=== PATIENT | female | born 1950 | race Caucasian/White ===

== ENCOUNTER 2016-10-15 18:45 | Observation (INO) ==
[2016-10-15] MEDS ORDERED: Ondansetron 4 MG/2 ML VIAL IVP PRN (21:27)
--- NOTE | 2016-10-15 21:58 | Internal Med History&Physical ---
<Patti Agarwal Erendira - Last Filed: 10/15/16 23:05> Date of Encounter: 10/15/16 Time of Encounter: 21:46 Assessment and Plan (1) Atypical chest pain Current visit: Yes Status: Acute cardiac versus GI vs infectious etiology EKG with nonspecific ST change trend troponins repeat EKG in morning ECHO consider stress test versus catherterization dependant on current clinical course consider consult to cardiology dependant on clinical course start clopidogrel (asprin allergy) start carafate, PPI trend LFTs, amylase hold pravastatin due to elevated LFTs consider GI consult dependant on repeat labs and clinical course (2) Acute electrocardiogram changes Current visit: Yes Status: Acute EKG changes from 08/19 repeat EKG 10/16 troponin .01 trend troponins (3) Elevated liver function tests Current visit: Yes Status: Acute trend LFTs and amylase consider GI consult (4) Diabetes mellitus Current visit: Yes Status: Acute hold metformin low dose SS protocol diabetic diet Qualifiers: Diabetes mellitus type: type 2 Diabetes mellitus complication status: with unspecified complications (5) Influenza A Current visit: No Status: Acute symptomatic <48h +nasal swab start tamiflu supportive care Internal Medicine - H&P: HPI Chief complaint: chest pain Admitted From: Hospital to Hospital Transfer (from [place]) Plans for Post Hospital Care: Home History of present illness: Ms. Torres is a 66 year old female presents c/o chest pain. PMHx CAD,CHF, HTN, COPD,DM, HLD,Pt states that pain started today around 2 pm while she was at home doing dishes. Pt states at that time pain was a constant 10/10 aching deep pressure located midsternal radiating to the epigastric area. Pt states pain as constant that worsend with laying flat,improved with sitting upright but did not improve with rest. Pt states at this time she also had increased fatigue, weakness, chills and nausea. Pt also c/o dry cough and increased belching which started about the same time. Pt went to [place] ER was given malox GI cocktail and 3 doses of nitroglycerin. States Nitroglycerin relieved her CP and GI cocktail relieved her nausea, and belching. Pt states she is no longer experiencing any of these symptoms besides dry cough currently. Pt also mentions burning with urination x7 days with increased frequency. She also denies headache, lightheadedness, change in vision, diaphoresis, palpitation, SOB, wheezing, numbness/tingling Past Med Surg Social Fam HX - Past Medical History Medical history: CHF, COPD, coronary artery disease, diabetes, GERD, glaucoma, hyperlipidemia, hypertension, migraine, other (hiatal hernia) Psychiatric history: depression - Past Surgical History Surgical History: cholecystectomy, hysterectomy - Social History Smoking Status: Former smoker Packs per day: 1+ppd x40+yrs Smokeless Tobacco Status: No Alcohol use: none Drug use: none Current living situation: Home - Independent Activity Level: Independent ambulation Internal Medicine - H&P: Meds Amlodipine [Amlodipine Besylate] 10 mg PO DAILY 07/31/15 [History] Loratadine [Claritin] 10 mg PO DAILY 07/31/15 [History] Omeprazole [PriLOSEC] 20 mg PO BID 07/31/15 [History] Topiramate [Topamax] 100 mg PO BID 07/31/15 [History] Albuterol Sulfate [Ventolin Hfa] 2 puff IH Q4H PRN 03/15/16 [History] Ergocalciferol (VITAMIN D2) [Vitamin D2 (50,000 UNIT)] 50,000 unit PO WE [History] Latanoprost [Xalatan] 1 drop BOTH EYES HS 03/15/16 [History] Metformin HCl [Metformin HCl ER] 500 mg PO DAILY 03/15/16 [History] Pravastatin Sodium [Pravachol] 40 mg PO HS 03/15/16 [History] Trazodone HCl 50 mg PO HS 03/15/16 [History] Losartan Potassium [Cozaar] 25 mg PO DAILY 10/15/16 [History] Olopatadine HCl [Pataday] 1 drop BOTH EYES DAILY 10/15/16 [History] Allergies levofloxacin [From Levaquin] Allergy (Verified 07/23/16 23:05) SWELLING IV SITE, ITCHING aspirin Adverse Reaction (Verified 07/23/16 23:05) Nausea All Systems PM: A 10-system review of systems was performed and is negative for pertinent findings except as documented above in the HPI. - Constitutional Constitutional: chills, fatigue, fever(s) (subjective at home), malaise, weakness, no excessive sweating - EENT Eyes: no change in vision Ears: no tinnitus Nose, mouth and throat: dry mouth, nasal congestion - Cardiovascular Cardiovascular ROS IM: chest pain, diaphoresis, no dyspnea, no dyspnea on exertion, no edema, no irregular heart rhythm, no lightheadedness, no palpitations - Respiratory Respiratory: cough, no dyspnea, no hemoptysis, no wheezing - Gastrointestinal Gastrointestinal: abdominal pain (epigastric), belching, dyspepsia, heartburn, nausea, no change in bowel habits, no vomiting - Genitourinary Genitourinary: dysuria, urinary frequency - Musculoskeletal Musculoskeletal ROS IM: limited range of motion (R shoulder) - Neurological Neurological ROS: no focal weakness, no headache(s), no numbness, no tingling - Constitutional Vitals: Temp Pulse Resp BP Pulse Ox 98.8 F 80 16 126/78 95 10/15/16 21:34 10/15/16 21:34 10/15/16 21:34 10/15/16 21:34 10/15/16 21:34 General appearance: Present: A&O X 3, no acute distress, answers questions appropriately - Head Head exam: Present: atraumatic, normocephalic - Eye Eye exam: Present: EOMI, conjuntiva pink, sclera anicteric - ENT ENT exam: Present: mucous membranes moist (edentulous) - Neck Neck exam general surgery: Present: full ROM, supple. Absent: lymphadenopathy - Respiratory Respiratory exam: Present: CTAB. Absent: rales, rhonchi, wheezes - Cardiovascular Cardiovascular exam: Present: RRR, +S1, +S2 - GI/Abdominal GI/Abdominal exam: Present: normal bowel sounds, soft, tenderness (epigastric), no peritoneal signs - Extremities Exam Extremities exam: Present: warm. Absent: calf tenderness, cyanotic, pedal edema - Neurological Exam Neurological exam: Present: CN II-XII intact, oriented X3 - Psychiatric Psychiatric exam: Present: normal affect, normal mood - Skin Skin exam: Present: dry, intact, warm <Marco Villa - Last Filed: 10/16/16 00:06> Past Med Surg Social Fam HX - Family History Mother History Unknown: Yes Living Status: Hx Family Endocrine Disorder: Yes (DIABETES MELLITUS.) Father History Unknown: Yes Living Status: - Additional Family History Additional family history: + distant history of CAD - Constitutional Vitals: Temp Pulse Resp BP Pulse Ox 98.8 F 80 16 126/78 95 10/15/16 21:34 10/15/16 21:34 10/15/16 21:34 10/15/16 21:34 10/15/16 21:34 - Respiratory Respiratory exam: Present: CTAB, rhonchi. Absent: chest wall tenderness, respiratory distress Additional comments: dry cough - Cardiovascular Cardiovascular exam: Present: RRR, +S1, +S2. Absent: diastolic murmur, JVD, rubs, systolic murmur - GI/Abdominal GI/Abdominal exam: Present: soft, tenderness (mid-epigastrium). Absent: guarding, hepatomegaly, rebound, splenomegaly - Back Exam Back exam: Present: normal inspection. Absent: CVA tenderness (L), CVA tenderness (R) Internal Med - H&P Results - Labs Labs: Cardiac Enzymes 10/15/16 Range/Units 21:46 Troponin I 0.00 (0-0.03) ng/mL - EKG Data -: EKG Interpreted by Myself EKG shows normal: sinus rhythm - EKG Data Prior EKG available for review: yes When compared to previous EKG: there is no significant change EKG comments: 10/15/16 23:57 Sinus rhythm; subtle ST-T depression in V5-V6. - Diagnostic Studies Chest x-ray Status: image reviewed by me (negative in my opinion; mild vascular congestion per radiology) - Attending Attestation I discussed the patient QUILEUTE; PMH; ROS; lab data; and exam findings with Dr. Agarwal. I then saw, interviewed, and examined patient independently as well. Pt currently chest pain free. She is, however, having epigastric pain. She denies any h/o pancreatitis and/or ulcer disease. She does not drink alcohol. Given her elevated LFTs and history of excessive belching, I worry that she has a GI source of chest pain. She does have risk factors for angina and also had relief of CP with NTG. Furthermore, she has influenza presently and CP may be related to her acute viral illness. I agree with Dr. Agarwal's plan as detailed above. Given her active and symptomatic influenza, we will hold off on ordering stress test. This can be done as outpatient. If she has + troponins and/or unstable angina, we will consult cardiology at that point. Otherwise, cardiac work-up can be done as outpatient. Meanwhile, I asked Dr. Agarwal to add Carafate for concerns of GI source of chest pain. Other than my comments above and noted exam findings, I agree with Dr. Agarwal's assessment adn plan.
[2016-10-15] MEDS ORDERED: D5% in Water 1,000 ML IV PRN (23:11)
[2016-10-15] MEDS ORDERED: *HR* Dextrose 50 % in Water (Syg) 50 ML SYRINGE IVP PRN (23:11)
[2016-10-15] MEDS ORDERED: Dextrose Gel 15 GM PO PRN ×2 (23:11)
[2016-10-16] MEDS: Sucralfate 1 GM TABLET PO SCH ×5 (00:10→20:06)
[2016-10-16] MEDS: (Olopatadine Hcl [Pataday] 1 DROP) OP SCH ×2 (00:12→07:49)
[2016-10-16] MEDS: traZODone 50 MG TABLET PO SCH ×2 (00:13→20:05)
[2016-10-16] MEDS: Topiramate 100 MG TABLET PO SCH ×3 (00:13→20:05)
[2016-10-16] MEDS: Insulin LISPRO 300 UNITS/3 ML VIAL SQ SCH ×6 (00:17→20:17)
[2016-10-16] MEDS: Latanoprost 2.5 ML BOTTLE BOTH EYES SCH ×2 (00:18→20:06)
[2016-10-16] MEDS: *HR* Heparin 5,000 UNIT/ML VIAL SQ SCH ×3 (00:19→16:33)
[2016-10-16 04:11] LABS: Bilirubin,Urine Negative (Negative); Blood,Urine Small (Negative); Clarity,Urine Clear (Clear); Color,Urine Yellow (Yellow); Glucose,Urine (UA) Normal (Normal); Ketones,Urine Negative (Negative); Leukocyte Esterase,Urine Negative (Negative); Nitrite,Urine Negative (Negative); PH,Urine 6.5 pH Units (5.0-8.0); Protein,Urine Negative (Neg-Trace); Specific Gravity,Urine 1.008 (1.010-1.025); Urobilinogen,Urine Normal (Normal)
[2016-10-16 04:14] LABS: Bacteria,Urine None Seen per hpf (None-Few); Hyaline Casts,Urine None Seen per lpf (None-Few); RBC,Urine 0-3 per hpf (0-3); Squamous Epithelial Cell,Urine Moderate per lpf (None-Few); WBC,Urine 0-3 per hpf (0-3)
[2016-10-16 05:32] LABS: Albumin 3.3 g/dL (3.5-5.0); Bilirubin,Direct 0.2 mg/dL (0.0-0.5); Bilirubin,Indirect 0.3 mg/dL (0.0-1.2); Bilirubin,Total 0.5 mg/dL (0.2-1.2); Globulin 3.4 g/dL (2.4-3.5); Total Protein 6.7 g/dL (6.0-8.3)
[2016-10-16] MEDS: amLODIPine 5 MG TABLET PO SCH (07:48)
[2016-10-16] MEDS: Loratadine 10 MG TABLET PO SCH (07:49)
--- NOTE | 2016-10-16 10:07 | ECHO - Doppler Report ---
Echocardiogram Name: Joslyn Torres Date of Study: 10/16/2016 Date: 1950 Ht: 66.0 in Medical Record#: [id number] Age: 66 Wt: 170.0 lb Gender: Female BSA: 1.87 Order #: [id number] Location: [facility] Room #: [id number] Reading Physician: Paris Feliciano DO Machinist Outside: Mason Aguila RDCS Ordering Physician: Patti Agarwal DO Primary Physician: Alfredo Brooke CNP Indications: Chest pain Impressions: LVEF 60-65%. Normal left ventricular size and systolic function. Mild concentric hypertrophy of the left ventricle. There is evidence of mild diastolic dysfunction of the left ventricle. Normal right ventricular size and function. No significant valvular dysfunction. No pulmonary hypertension. Left Ventricular Wall Motion: Rest Echo Findings All wall segments showed normal motion. Findings: Study Quality * Technically adequate exam. ECG Findings * Normal sinus rhythm. Left Ventricle * LVEF 60-65%. * Mild concentric left ventricular hypertrophy. * Mild left ventricular diastolic dysfunction. Aortic Valve * No aortic regurgitation. * Aortic valve not well visualized. * No aortic stenosis. Mitral Valve * No mitral regurgitation. * No mitral stenosis. * Normal mitral valve structure. Tricuspid Valve * Tricuspid valve not well visualized. * No tricuspid regurgitation. * Estimated RA pressure is 3 mmHg. Pulmonic Valve * Pulmonic valve is not well visualized. * No pulmonic stenosis. * No pulmonic regurgitation. Pulmonary Artery * Pulmonary artery not well visualized. Right Ventricle * Normal right ventricular structure and function. Left Atrium * Normal left atrial size. Right Atrium * Normal right atrial size. Interatrial Septum * No evidence of PFO by color Doppler. IVC * Normal IVC dimensions and inspiratory collapse. Pericardium * There is no pericardial effusion present. Aorta * Normally sized aortic root. History Hypertension Diabetes Hypercholesteremia Family History of CAD Measurements: BP: 113/ 69 2D Normal Values RVIDd: 2.76 cm <2.7 cm IVSd: 1.30 cm 0.6 - 1.0 cm LVIDd: 4.31 cm 3.7 - 5.6 cm LVPWd: 1.30 cm 0.6 - 1.1 cm LVIDs: 2.21 cm 1.5 - 3.6 cm AO: 2.60 cm < 4.0 cm LA: 3.70 cm 2.0 - 4.0cm %FS: 48.70 cm >25 % LA volume: 31 Mitral Valve Peak E:.82 m/sec Peak A:1.12 m/sec E/A Ratio:0.7 Peak E' Lat Kam:9.03 cm/s Peak E' Med Kam:8.81 cm/s E/E' Lat Ratio:9.1 E/E' Med Ratio:9.3 Tricuspid Valve TV Regurg Peak Grad: 10.00mmHg TV Regurg Peak Kam: 1.56m/sec Updated by Paris Feliciano on 10/16/2016 10:01:48 AM electronically signed on 10/16/2016 10:03:44 AM with status of Final Wall Motion Rosa: 1=Normal, 2=Hypokinesis, 3=Akinesis, 4=Dyskinesis, 5=Aneurysmal, 6=Hyperkinetic, X=Not Visualized (Blank)=Missing
--- NOTE | 2016-10-16 12:01 | Event Note ---
Date of Encounter: 10/16/16 Time of Encounter: 12:00 A member of the UR committee has determined that the status is to be changed to observation using condition code 44. I am in agreement that the status is to be changed to observation.
--- NOTE | 2016-10-16 18:06 | Internal Med Progress Note ---
Date of Encounter: 10/16/16 Time of Encounter: 09:15 - Assessment and plan (1) Atypical chest pain Current Visit: Yes Status: Acute Assessment and plan: Pt reports substernal chest pain yesterday, lasting about an hour and a half, did not get better despite rest/nap. Pt describes as pressure with increased belching, constant, without radiation. She denies SOB but did report n/v and diaphoresis. Abd is tender in epigastric area. EKG with non-specific ST changes , troponins negative. Echo today revealed LVEF 60-65%, normal LV size and systolic dysfunction, mild LV hypertrophy, Mild LV diastolic dysfunction, no significant valvular dysfunction, and no pulmonary htn. Pt was pain free during exam with the exception of tenderness to epigastric area. Telemetry EKG Cardiac diet Echo done Stress in a.m Monitor labs Monitor VS (2) Acute electrocardiogram changes Current Visit: Yes Status: Acute Assessment and plan: Plan as above. Repeat EKG. (3) Chest pain Current Visit: Yes Status: Acute Assessment and plan: Plan as above. Qualifiers: Chest pain type: precordial pain Qualified Code(s): R07.2 - Precordial pain (4) Influenza A Current Visit: No Status: Acute Assessment and plan: Pt Flu A positive per swab at [place] ED. Pt is in respiratory precautions and she states that she did get her flu vaccine 2 mos ago at her PCP office. MOnitor labs and VS IVF hydration Pain and symptom control (5) Diabetes mellitus Current Visit: Yes Status: Chronic Assessment and plan: Pt A1c 6%, glucose 200. HOld po medications insulin sliding scale. accucheck 2h pp and hs Diabetic diet Qualifiers: Diabetes mellitus type: type 2 Diabetes mellitus complication status: with unspecified complications Diabetes mellitus chcf insulin use: unspecified chcf insulin use status Qualified Code(s): E11.8 - Type 2 diabetes mellitus with unspecified complications (6) Elevated liver function tests Current Visit: Yes Status: Acute Assessment and plan: ALT and AST elevated. Will recheck in a.m. - Time Spent With Patient less than 15 minutes - Subjective Interval history: Pt reports increased belching and midsternal chest pressure from throat to epigastric area since 1400 yesterday. Pt was resting, watching tv at onset of pressure. Pt states that she took a nap and pain had actually become worse after she awakened. She states that she has "really bad reflex" and that all she had eaten was a banana prior to episode. She did attempt to drink some fluid and began having nausea and vomiting. Pain did not radiate, but pt did say that she had diaphoresis for unknown reason, since it is chilly inside her house. Pt denies recent illness and was unaware that she had the flu. Pt did get a flu vaccine 2 mos ago at PCP. - Constitutional Vitals: Temp Pulse Resp BP Pulse Ox 98.6 F 83 18 120/71 97 10/16/16 15:08 10/16/16 15:08 10/16/16 15:52 10/16/16 15:08 10/16/16 15:52 General appearance: Present: cooperative, A&O X 3, pleasant, no acute distress, answers questions appropriately - Head Head exam: Present: atraumatic, normal inspection - Eye Eye exam: Present: normal appearance, conjuntiva pink. Absent: nystagmus - ENT ENT exam: Present: mucous membranes moist, normal exam, normal external ear exam , normal oropharynx - Neck Neck exam general surgery: Present: normal inspection. Absent: lymphadenopathy , tenderness - Respiratory Respiratory exam: Present: CTAB. Absent: accessory muscle use, chest wall tenderness, decreased breath sounds, rales, respiratory distress, rhonchi, stridor, wheezes, tachypnea - Cardiovascular Cardiovascular exam: Present: RRR, +S1, +S2 - GI/Abdominal GI/Abdominal exam: Present: normal bowel sounds, tenderness. Absent: guarding, hepatomegaly Additional comments: Abd tender in epigastric area. - Extremities Exam Extremities exam: Present: normal capillary refill, normal inspection, warm, radial pulses palpable and symetrical. Absent: pedal edema, tenderness - Neurological Exam Neurological exam: Present: alert, oriented X3, no focal deficits, strengths equal and symetr throughout, pronater drift. Absent: facial droop, speech deficit Internal Medicine: Result - Labs Labs: Cardiac Enzymes 10/15/16 10/16/16 10/16/16 Range/Units 21:46 04:11 10:10 Troponin I 0.00 0.01 0.00 (0-0.03) ng/mL Liver Function 10/16/16 Range/Units 04:11 Total Bilirubin 0.5 (0.2-1.2) mg/dL Direct Bilirubin 0.2 (0.0-0.5) mg/dL AST 58 H (5-34) Units/L ALT 59 H (0-55) Units/L Alkaline Phosphatase 109 (38-126) Units/L Albumin 3.3 L (3.5-5.0) g/dL Urine 10/16/16 Range/Units 02:25 Urine Color Yellow (Yellow) Urine Clarity Clear (Clear) Urine pH 6.5 (5.0-8.0) pH Units Ur Specific [place] 1.008 L (1.010-1.025) Urine Protein Negative (Neg-Trace) mg/dL Urine Glucose (UA) Normal (Normal) mg/dL Consult Discharge Plan - Plan Referrals: Alfredo Brooke CNP [Primary Care Provider] - 10/23/16 2:20 pm
[2016-10-16] MEDS ORDERED: Insulin LISPRO 300 UNITS/3 ML VIAL SQ SCH (21:00)
[2016-10-16] MEDS ORDERED: Insulin DETEMIR 100 UNIT/ML X5UNITS SQ SCH (21:00)
[2016-10-16 22:09] LABS: Hemoglobin A1C 6.1 %
[2016-10-17] MEDS: *HR* Heparin 5,000 UNIT/ML VIAL SQ SCH (05:51)
[2016-10-17 05:55] LABS: Basophils % 0.7 %; Eosinophils % 0.5 %; Hematocrit 36.1 % (35.3-44.9); Hemoglobin 11.9 g/dL (11.5-15.4); Immature Granulocytes % 0.2 % (0-4); Lymphocytes # 1.7 K/mcL (0.6-4.6); Lymphocytes % 39.6 %; Mean Corpuscular Hemoglobin 27.2 pg (28.0-33.3); Mean Corpuscular Volume 82.4 fL (83.0-100.0); Mean Platelet Volume 11.6 fL (9.4-12.4); Monocytes # 0.4 K/mcL (0.0-1.3); Monocytes % 10.3 %; Neutrophils # 2.1 K/mcL (1.6-8.9); Platelet Count 160 K/mcL (140-400); Red Blood Count 4.38 M/mcL (3.82-4.97); Red Cell Distribution Width 14.7 % (11.5-14.5); Segmented Neutrophils % 48.7 %
[2016-10-17 06:02] LABS: Amylase 47 Units/L (25-125); Lipase 37 Units/L (8-78)
[2016-10-17 06:08] LABS: Alanine Aminotransferase 39 Units/L (0-55); Albumin 3.1 g/dL (3.5-5.0); Albumin/Globulin Ratio 0.9 (1.1-2.2); Alkaline Phosphatase 95 Units/L (38-126); Aspartate Amino Transferase 30 Units/L (5-34); BUN/Creatinine Ratio 10 (6-26); Bilirubin,Direct 0.1 mg/dL (0.0-0.5); Bilirubin,Indirect 0.3 mg/dL (0.0-1.2); Bilirubin,Total 0.4 mg/dL (0.2-1.2); Blood Urea Nitrogen 10 mg/dL (7-20); Calcium 8.4 mg/dL (8.6-10.8); Carbon Dioxide 22 mEq/L (19-29); Chloride 109 mEq/L (98-109); Globulin 3.5 g/dL (2.4-3.5); Glucose 116 mg/dL (70-99); Osmolality,Calculated 290 (280-300); Potassium 3.6 mEq/L (3.5-4.5); Sodium 140 mEq/L (136-145); Total Protein 6.6 g/dL (6.0-8.3); eGFR For African Americans > 60 (> 60); eGFR For Non-African Americans 55 (> 60)
[2016-10-17] MEDS ORDERED: Regadenoson 0.4 MG/5 ML SYRINGE IVP ONE (06:29)
[2016-10-17] MEDS: amLODIPine 5 MG TABLET PO SCH (10:35)
[2016-10-17] MEDS: Topiramate 100 MG TABLET PO SCH (10:35)
[2016-10-17] MEDS: Loratadine 10 MG TABLET PO SCH (10:35)
[2016-10-17] MEDS: Sucralfate 1 GM TABLET PO SCH ×2 (10:35→10:38)
[2016-10-17] MEDS: (Olopatadine Hcl [Pataday] 1 DROP) OP SCH (10:36)
[2016-10-17] MEDS: Insulin LISPRO 300 UNITS/3 ML VIAL SQ SCH ×2 (10:36→12:07)
--- NOTE | 2016-10-17 11:43 | Nuclear Medicine Stress Report ---
Regadenoson Nuclear Stress Name: Joslyn Torres Date of Study: 10/17/2016 Date: 1950 Ht: 66.0 in Medical Record#: [id number] Age: 66 Wt: 170.0 lb Gender: Female Order #: [id number] Location: [facility] Room: [facility] Supervising Provider: Nuria Gonzales CNP Reading Physician: Paris Feliciano DO Ordering Physician: Shadia Ernst CNP Primary Care Physician: Alfredo Brooke CNP Stress Technologist: Cory Escamilla RRT, CCT Sheet Metal Worker: Russell Lopez Indications: Chest Pain Impression: Perfusion imaging was negative for ischemia or infarct. Pharmacologic ECG was negative for ischemia at the level of heart rate achieved. Gated EF = >70%. History: Hypertension Diabetes Stress Test Summary: Stress Test Type: Pharmacologic Regadenoson 0.4mg/5ml given IV Baseline Information: Initial Heart Rate: 71 Blood Pressure: 124/74 Stress Information: Stress Time: 4 min 00 sec Test Terminated Due to (primary): Completed Protocol Maximum Blood Pressure: 140/76 Maximum Heart Rate: 86 Percent Maximum Heart Rate Achieved: 55 Double Product: 12,040 METS Reached: 1 Symptoms: Shortness of breath Nuclear Summary: SPECT myocardial perfusion imaging using Tc99m Sestamibi given intravenously was performed at rest and following cardiac stress testing. The resting images were obtained following initial dose of 11.0 mCi. Following stress an additional dose of 33.0 mCi was given at peak exercise or 30 seconds post regadenoson infusion. Medication Given: Time Medication Dose Units Route Findings: Stress Note * Resting ECG demonstrated normal sinus rhythm. * Pharmacologic stress ECG is negative for ischemia at level of heart rate achieved. * No arrhythmias were noted during stress. * Patient had no chest pain during stress. Hemodynamic responses * Normal hemodynamic responses to pharmacologic stress. Study Quality * Study quality was fair. Gated EF > 70% * Gated EF > 70%. Left Ventricle * The left ventricle is not dilated. TID * No evidence of transient ischemic dilatation. Lung Uptake * There is no evidence of increase lung uptake. NORMALS * Normal wall motion. * Normal segmental perfusion in stress. * Normal Segmental Perfusion in rest. Updated by Paris Feliciano on 10/17/2016 11:38:58 AM electronically signed on 10/17/2016 11:39:13 AM with status of Final
--- NOTE | 2016-10-17 15:16 | Discharge Summary ---
Date of Encounter: 10/17/16 Time of Encounter: 15:00 - Discharge Diagnosis (1) Atypical chest pain Priority: Primary Status: Acute Comments: Serial troponins were negative. Echo negative LVEF 50%, moderate diastolic dysfunction of LV, normal RV size and function, mild-moderate mitral regurgitation, no pulmonary htn. STress test negative for ischemia or infarct. gated EF > 70%. Pt denies chest pain at this time. (2) Acute electrocardiogram changes Priority: Secondary Status: Acute Comments: Pt had EKG changes, repeat done today sinus rhythm with T wave inversion in aVR. Rate 66, FL int 150, QRS 87, QTc 397. 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 (3) Chest pain Priority: Secondary Status: Resolved Comments: Plan as above. Qualifiers: Chest pain type: precordial pain Qualified Code(s): R07.2 - Precordial pain (4) Influenza A Priority: Secondary Status: Acute Comments: Pt will continue Tamiflu at home. Pt denies cough, fatigue, myalgias, arthralgias, fever, sob, dyspnea. (5) Diabetes mellitus Priority: Secondary Status: Chronic Comments: A1c below goal, glucose has been well controlled here. Will restart home medications on discharge. Qualifiers: Diabetes mellitus type: type 2 Diabetes mellitus complication status: with unspecified complications Diabetes mellitus yarn wrapper insulin use: unspecified yarn wrapper insulin use status Qualified Code(s): E11.8 - Type 2 diabetes mellitus with unspecified complications (6) Elevated liver function tests Priority: Secondary Status: Resolved Comments: LFTs returned to baseline today. AST/ALT, amylase and lipase all WNL. Pt denies abd pain. No hepatomegaly or abd tenderness, masses. - Discharge Medications Prescriptions: Oseltamivir [Tamiflu] 75 mg PO BID #8 capsule Home Medications: Amlodipine [Amlodipine Besylate] 10 mg PO DAILY 07/31/15 [History] Loratadine [Claritin] 10 mg PO DAILY 07/31/15 [History] Omeprazole [PriLOSEC] 20 mg PO BID 07/31/15 [History] Topiramate [Topamax] 100 mg PO BID 07/31/15 [History] Albuterol Sulfate [Ventolin Hfa] 2 puff IH Q4H PRN 03/15/16 [History] Latanoprost [Xalatan] 1 drop BOTH EYES HS 03/15/16 [History] Metformin HCl [Metformin HCl ER] 500 mg PO DAILY 03/15/16 [History] Trazodone HCl 50 - 100 mg PO HS PRN 03/15/16 [History] Losartan Potassium [Cozaar] 25 mg PO DAILY 10/15/16 [History] Olopatadine HCl [Pataday] 1 drop BOTH EYES DAILY 10/15/16 [History] Atorvastatin [Lipitor] 40 mg PO DAILY 10/16/16 [History] Dexlansoprazole [Dexilant] 60 mg PO DAILY 10/16/16 [History] Clopidogrel [Plavix] 75 mg PO DAILY tablet 10/17/16 [Rx] Ergocalciferol (VITAMIN D2) [Drisdol (50,000 Unit)] 50,000 unit PO WE capsule 10/17/16 [Rx] Oseltamivir [Tamiflu] 75 mg PO BID #8 capsule 10/17/16 [Rx] Allergies/Adverse Reactions: Allergies levofloxacin [From Levaquin] Allergy (Verified 07/23/16 23:05) SWELLING IV SITE, ITCHING aspirin Adverse Reaction (Verified 07/23/16 23:05) Nausea Procedures/tests Complete & Pending: Procedures Performed prior 72 hours Category Date Time Status NM maren perf SPECT multi [NM] Routine Exams 10/16/16 05:42 Taken EKG [ECG 12 lead ECG] [ECG] Stat Y 10/16/16 18:18 Ordered EV echocardiogram Routine Y 10/16/16 23:05 Completed SP pharm nuclear stress Routine Y 10/17/16 07:00 Completed Date of admission: 10/15/16 20:33 Primary care physician: Alfredo Brooke CNP Consults: 10/16/16 20:26 Consult to Registered Radiographer [CONS] Routine Comment: Discharging clinician: Shadia Ernst Anticipated date of discharge: 10/17/16 - Patient Status Disposition: Home, Self-Care Condition: Good Functional capacity at discharge: independent ambulation Overall status at discharge: patient is progressing back to baseline - Discharge Instructions Follow Up With: Alfredo Brooke CNP [Primary Care Provider] - 10/23/16 2:20 pm Additional Instructions: Please take your Tamiflu as written and take it until it is gone. Please try to stay home as much as possible. If you absolutely need to go into public, please wear a mask. Stay home and rest and drink plenty of fluids Follow up with your primary care physician within the next week for a hospital follow up Please restart your normal home medications. Return here or to closest ER for any other problems or concerns for reevaluation. Interval History: Pt was admitted 2 days ago for atypical chest pain and incidentally Flu A. PT reports approx 2 hours of midsternal chset pressure and belching prior to arriving at ED. Pt started having N/V after attempting to drink at home. Pt did get a flu vaccine. Pt has primarily been asymptomatic during admission. She states that the carafate did seem to help her. She had echo last evening that was negative and stress today, which was also negative. Pt will go home on Tamiflu for 4 more days with instructions to stay inside and if she does have to go out, wear a mask, drink plenty of fluids and rest. Pt should follow up with PCP in a week. Hospital course: Ms. Torres is a 66 year old female - Time Spent with Patient Total time spent providing and/or coordinating discharge services: - Constitutional Vitals: Temp Pulse Resp BP Pulse Ox 98.8 F 73 16 104/62 96 10/17/16 11:12 10/17/16 11:12 10/17/16 12:02 10/17/16 11:12 10/17/16 12:02 General appearance: Present: cooperative, A&O X 3, pleasant, no acute distress, answers questions appropriately - Head Head exam: Present: normal inspection - Eye Eye exam: Present: normal appearance, conjuntiva pink - ENT ENT exam: Present: mucous membranes moist, normal exam, normal external ear exam - Neck Neck exam general surgery: Present: full ROM, normal inspection. Absent: lymphadenopathy, tenderness - Respiratory Respiratory exam: Present: decreased breath sounds, CTAB, wheezes. Absent: chest wall tenderness, rales, rhonchi, stridor Additional comments: Pt had faint exp wheezing in R base. Will give albuterol tx prior to discharge. - Cardiovascular Cardiovascular exam: Present: RRR, +S1, +S2 - GI/Abdominal GI/Abdominal exam: Present: normal bowel sounds, soft. Absent: hepatomegaly, tenderness - Extremities Exam Extremities exam: Present: full ROM, normal capillary refill, normal inspection , warm, radial pulses palpable and symetrical. Absent: pedal edema, tenderness - Neurological Exam Neurological exam: Present: alert, oriented X3, no focal deficits, strengths equal and symetr throughout. Absent: facial droop, speech deficit
[2016-10-17 15:17] VITALS: BP 118/75
[2016-10-17] MEDS ORDERED: Oseltamivir Phosphate 30 MG CAPSULE PO SCH (21:00)
--- NOTE | 2016-10-18 17:01 | Electrocardiograph Report ---
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
== END 2016-10-17 17:00 | disposition home or self-care (01) ==
LOC: 3BNU
PROVIDERS: ADMIT Internal Medicine; ATTEND Registered Nurse

== ENCOUNTER 2016-11-25 07:48 | Inpatient (IN) ==
--- NOTE | 2016-11-24 21:04 | Discharge Summary ---
<Rylee Valle - Last Filed: 12/08/16 20:53> Date of Encounter: 12/08/16 Time of Encounter: 20:53 - Discharge Diagnosis (1) Left rotator cuff tear arthropathy Priority: Primary Status: Acute (2) HTN (hypertension) Priority: Secondary Status: Chronic Qualifiers: Hypertension type: essential hypertension Qualified Code(s): I10 - Essential (primary) hypertension (3) Seizure disorder Priority: Secondary Status: Chronic (4) DMII (diabetes mellitus, type 2) Priority: Secondary Status: Chronic Qualifiers: Diabetes mellitus complication status: with unspecified complications Diabetes mellitus mcc insulin use: unspecified mcc insulin use status Qualified Code(s): E11.8 - Type 2 diabetes mellitus with unspecified complications - Discharge Medications Home Medications: Amlodipine [Amlodipine Besylate] 10 mg PO DAILY 07/31/15 [History] Loratadine [Claritin] 10 mg PO DAILY 07/31/15 [History] Topiramate [Topamax] 100 mg PO BID 07/31/15 [History] Albuterol Sulfate [Ventolin Hfa] 2 puff IH Q6H PRN 03/15/16 [History] Latanoprost [Xalatan] 1 drop BOTH EYES HS 03/15/16 [History] Metformin HCl [Metformin HCl ER] 500 mg PO DAILY 03/15/16 [History] Trazodone HCl 50 - 100 mg PO HS PRN 03/15/16 [History] Losartan Potassium [Cozaar] 25 mg PO DAILY 10/15/16 [History] Atorvastatin [Lipitor] 40 mg PO DAILY 10/16/16 [History] Dexlansoprazole [Dexilant] 60 mg PO DAILY 10/16/16 [History] Ergocalciferol (VITAMIN D2) [Drisdol (50,000 Unit)] 50,000 unit PO WE capsule 10/17/16 [Rx] OxyCODONE Immed Rel [Roxicodone 5 MG] 5 - 10 mg PO Q6HR PRN #40 tablet 11/24/16 [Rx] Allergies/Adverse Reactions: Allergies levofloxacin [From Levaquin] Allergy (Verified 11/25/16 09:05) SWELLING IV SITE, ITCHING aspirin Adverse Reaction (Verified 11/25/16 09:05) Nausea Primary care physician: Alfredo Brooke CNP - Patient Status Disposition: Home, Self-Care Condition: Good Functional capacity at discharge: uses cane/walker Overall status at discharge: patient is back to baseline - Discharge Instructions Follow Up With: Ken Mohr MD [Partnered Physician] - 12/24/16 10:40 am Rylee Valle PAC [Physician Wind Turbine Mechanical Engineer] - 12/05/16 2:00 pm Alfredo Brooke CNP [Primary Care Provider] - Additional Instructions: Discharge Instructions: Total Shoulder Please call [facility] ([phone]), your Primary Care Physician, or report to the Emergency Room if you have any of the following symptoms: Nausea, vomiting, fever greater that 101.5, swelling, chest pain, shortness of breath, increased pain/redness/drainage/odor for your incision site, numbness/ tingling, or any other concerning symptoms. ACTIVITY: Always keep your arm in the sling. Do not raise your arm away from your body. Do not use your arm to help with getting in or out of bed. No weight bearing permitted. Only perform those exercises given to you by your therapist. MEDICATIONS: Upon discharge resume your home medications. Take all the medications as prescribed. Take a stool softener if taking narcotic pain medications. Stool softeners are only effective if you drink enough fluids. Drink 6-8 glass of water or fluids a day, unless this is not allowed for another health problem. Despite using stool softeners, if you haven't had a bowel movement in 3 days, please switch to a gentle laxative. Gentle laxatives are sold over the counter. You should have a bowel movement within 24 hours, if not call the office. You will be discharged from the hospital with a prescription for pain medication. You are encouraged to decrease the use of narcotic pain medication as tolerated. Should you require a refill, please call the office. [facility] prescribes narcotic pain medication for only 4-6 weeks after surgery. If you require pain medication beyond this time period, you may be referred to your Primary Care Physician or to the Pain Clinic for further evaluation. Plan ahead for refills on pain medication as many narcotics either need to be picked up at the office or mailed. It is best to call 48-72 hours in advance of needing a prescription refill so you don't run out of medication. To help control the post-operative pain, you may take NSAIDs (Aleve,Advil, Motrin, Ibuprofen, Naprosyn) or Tylenol as prescribed on the bottle in addition to the pain medication. WOUND CARE: Leave the dressing on for 7-10 days. You may change the dressing if it becomes saturated greater than 50%. Do not get the dressing wet at anytime. Wash your hands with antibacterial soap, rinse and dry prior to any wound care. If you have nuris the visiting nurse or rehab facility can remove the stapes 10-14 days after surgery and place steri-strips across the wound. Leave the steri-strips in place until they fall off on their own. You may let water from the shower run on top of the steri-strips. If you do not have a visiting nurse or rehab facility, you will need to return to the office at 10-14 days for the nuris to be removed. If you have itching or redness around the dressing call the office. FOLLOW-UP: Please follow up with your surgeon in the orthopedic clinic, as scheduled - [facility] Hospital course: Ms. Torres is a 66 year old female - Time Spent with Patient Total time spent providing and/or coordinating discharge services: <Ken Mohr - Last Filed: 12/11/16 13:51> Date of Encounter: 12/11/16 Time of Encounter: 13:51 - Discharge Diagnosis (1) Diabetes mellitus Priority: Secondary Status: Chronic Qualifiers: Diabetes mellitus type: type 2 Diabetes mellitus complication status: with unspecified complications Diabetes mellitus mcc insulin use: unspecified mcc insulin use status Qualified Code(s): E11.8 - Type 2 diabetes mellitus with unspecified complications (2) Left rotator cuff tear arthropathy Priority: Primary Status: Acute (3) HTN (hypertension) Priority: Secondary Status: Chronic Qualifiers: Hypertension type: essential hypertension Qualified Code(s): I10 - Essential (primary) hypertension (4) Seizure disorder Priority: Secondary Status: Chronic (5) DMII (diabetes mellitus, type 2) Priority: Secondary Status: Chronic Qualifiers: Diabetes mellitus complication status: with unspecified complications Diabetes mellitus mcc insulin use: unspecified terminal carman insulin use status Qualified Code(s): E11.8 - Type 2 diabetes mellitus with unspecified complications Primary care physician: Alfredo Brooke CNP - Hospital Course Hospital course: Ms. Torres is a 66 year old female The patient had an uneventful postoperative course. They received antibiotics and physical therapy and were discharged in stable condition. There will follow -up in the office in 2 weeks. - Time Spent with Patient Total time spent providing and/or coordinating discharge services:
--- NOTE | 2016-11-25 08:30 | History & Physical Report ---
Date of Encounter: 11/25/16 Time of Encounter: 08:30 24 Hour HP Update - Instructions Instructions: If the History and Physical is less than 30 days old and was completed prior to A.M. admission and or procedure and has NOT been updated on calendar day of procedure please complete this update prior to performing procedure. - Update Patient reports changes in Medical Condition: No Changes in examination, assessment, or condition: No Changes in Medication: No Preop tests/diagnostics Reviewed: Yes Surgery Remains Indicated: Yes Consent for Planned Operative Procedure(s) Verified: Yes - Pre-Operative Checklist Preoperative Checklist Indicated: No Prophylactic Antibiotic Ordered: Yes Is VTE Prophylaxis Indicated?: Yes
[2016-11-25] MEDS ORDERED: Lidocaine -MPF 1% 2 ML VIAL ID ONE (08:57)
[2016-11-25] MEDS ORDERED: CeFAZolin Pre 2,000 MG/100 ML 2,000 MG/100 ML BAG IVPB ONE (08:57)
[2016-11-25] MEDS ORDERED: Ringers Solution, Lactated 1,000 ML IVC SCH (09:00)
[2016-11-25] MEDS ORDERED: Famotidine 20 MG/2 ML VIAL IVP ONE (09:13)
[2016-11-25] MEDS ORDERED: Gabapentin 300 MG CAPSULE PO ONE (09:14)
--- NOTE | 2016-11-25 09:18 | Anesthesia Evaluation PreOp ---
Date of Encounter: 11/25/16 Time of Encounter: 09:15 - Past History Planned Operation: Left Total Shoulder Cardiac History: HTN, Hyperlipidemia Pulmonary History: Denies Any Significant HX DIRECTOR OF PEDIATRIC REHABILITATION History: Denies Any Significant HX, Seizures (Last one 2010) Other Medical History: Diabetes Type II, GERD Anesthesia History: No Prior Anesthetic Complications : No Alcohol Use: none Drug use: none Medications and Allergies Amlodipine [Amlodipine Besylate] 10 mg PO DAILY 07/31/15 [History] Loratadine [Claritin] 10 mg PO DAILY 07/31/15 [History] Omeprazole [PriLOSEC] 20 mg PO BID 07/31/15 [History] Topiramate [Topamax] 100 mg PO BID 07/31/15 [History] Albuterol Sulfate [Ventolin Hfa] 2 puff IH Q4H PRN 03/15/16 [History] Latanoprost [Xalatan] 1 drop BOTH EYES HS 03/15/16 [History] Metformin HCl [Metformin HCl ER] 500 mg PO DAILY 03/15/16 [History] Trazodone HCl 50 - 100 mg PO HS PRN 03/15/16 [History] Losartan Potassium [Cozaar] 25 mg PO DAILY 10/15/16 [History] Olopatadine HCl [Pataday] 1 drop BOTH EYES DAILY 10/15/16 [History] Atorvastatin [Lipitor] 40 mg PO DAILY 10/16/16 [History] Dexlansoprazole [Dexilant] 60 mg PO DAILY 10/16/16 [History] Clopidogrel [Plavix] 75 mg PO DAILY tablet 10/17/16 [Rx] Ergocalciferol (VITAMIN D2) [Drisdol (50,000 Unit)] 50,000 unit PO WE capsule 10/17/16 [Rx] Oseltamivir [Tamiflu] 75 mg PO BID #8 capsule 10/17/16 [Rx] OxyCODONE Immed Rel [Roxicodone 5 MG] 5 - 10 mg PO Q6HR PRN #40 tablet 11/24/16 [Rx] Allergies levofloxacin [From Levaquin] Allergy (Verified 11/25/16 09:05) SWELLING IV SITE, ITCHING aspirin Adverse Reaction (Verified 11/25/16 09:05) Nausea - Meds/Allergy Pre-op Review Medications Reviewed: Yes Allergies Reviewed: Yes Beta Blockers on Current Med List: No Anesthesia Results - Labs Laboratory Tests 11/18/16 11/18/16 15:30 15:30 Hgb 12.6 Hct 38.4 Plt Count 221 Sodium 139 Potassium 3.9 BUN 9 Creatinine 0.90 - Imaging EKG: report reviewed (SR) Additional studies: ECHO -2016 LVEF 60% Anesthesia Exam O2 Sat Height 1.68 m Height 1.68 m Weight 81.647 kg Weight 81.647 kg O2 Sat by Pulse Oximetry 94 Vital Signs Temp Pulse Resp BP Pulse Ox 98.8 F 74 18 113/66 94 11/25/16 08:37 11/25/16 08:37 11/25/16 08:37 11/25/16 08:37 11/25/16 08:37 Height: 5'6 Weight: 180 lbs NPO (# of Hours): MN Pain Scale: 0 - HEENT Pupil (Motor): Pupils equal, EOMI Mallampati: III Teeth: Edentulous Oral Opening: Less than or equal to 3 - DIRECTOR OF PEDIATRIC REHABILITATION LOC: Oriented DIRECTOR OF PEDIATRIC REHABILITATION Motor: Normal RUE, Normal LUE, Normal RLE, Normal LLE, Normal Face DIRECTOR OF PEDIATRIC REHABILITATION Sensory: Normal: RUE, LUE, RLE, LLE, Face - Cardiac Rhythm: Regular Murmur: None JVD: No Carotid Bruit: No - Pulmonary Breath Sounds: bilateral Clear Respiratory Effort: Symmetrical Anesthesia Assess/Plan ASA Score: 3 (HTN DM) Modified Papa Scale for Level of Consciousness: Cooperative, oriented, and tranquil Anesthetic Plan: General Monitoring Plan: Standard Monitors Recovery Plan: PACU (Discussed GA and RA, agrees to proceed)
[2016-11-25] MEDS ORDERED: *HR* Midazolam HCl 2 MG/2 ML VIAL ONE (10:12)
[2016-11-25] MEDS ORDERED: *HR* Propofol 200 MG/20 ML VIAL IVP ONE (10:12)
[2016-11-25] MEDS ORDERED: Lidocaine -MPF 2% 2 ML VIAL ONE (10:13)
[2016-11-25] MEDS ORDERED: *HR* FentaNYL (PF) 100 MCG/2 ML VIAL ONE (10:15)
[2016-11-25] MEDS ORDERED: ROPIVACAINE HCL/PF 0.5% 30 ML VIAL ONE (10:29)
[2016-11-25] MEDS ORDERED: Tetracaine/PF 20 MG/2 ML AMPUL ONE (10:29)
[2016-11-25] MEDS ORDERED: *HR* Promethazine 25 MG/ML VIAL IVP PRN (10:43)
--- NOTE | 2016-11-25 10:45 | Anesthesia Procedures ---
Date of Encounter: 11/25/16 Time of Encounter: 10:44 Procedures: Anesthesia - Nerve Block Procedure Date: 11/25/16 Time: 10:44 Allergies/Adv Reactions: levofloxacin, ASA Surgical Procedure: left total shoulder, reverse Checklist: Correct Patient Identifier, Correct procedure, History checked Correct side: Left Blood Thinner: No Monitor Applied: EKG, BP, Pulse Oximetry Supplemental Oxygen via Nasal Cannula (L/min): 2 Sedation: Versed (mg): 2 Sedation: Fentanyl (mcg): 100 Indication: Post Op Analgesia Pre-op Neuro Deficits: No Block Type: Supraclavicular, Other (ICB/CP) Catheter placed: No Sterile Technique: Yes Ultrasound used: Yes Anatomy identified: Yes Visual spread of Local: Yes Neuro Stimulation: No Blood on Needle Aspiration: No Smooth Injection of Local: Yes Pain with Injection of Local: No Prep: Chlorhexadine Needle: 22 x 50 mm Stimuplex Local: 0.25% Bupivicaine w/Clonidine 20 mcg/cc, Tetracaine, Ropivacaine Volume (cc): 52 Complications: None/effective block Vitals: Vital Signs/O2 Sat/Glucose, Most Recent Temp Pulse Resp BP Pulse Ox 98.8 F 66 18 127/71 99 11/25/16 08:37 11/25/16 10:31 11/25/16 08:37 11/25/16 10:31 11/25/16 10:31 Blood Glucose* 127
[2016-11-25] MEDS ORDERED: Dexamethasone 4 MG/ML VIAL ONE (11:10)
[2016-11-25] MEDS ORDERED: Ondansetron 4 MG/2 ML VIAL ONE (11:10)
[2016-11-25] MEDS ORDERED: EPHEDrine 50 MG/ML VIAL ONE (11:14)
[2016-11-25] MEDS ORDERED: *HR* Labetalol 100 MG/20 ML MDV IVP PRN (11:28)
[2016-11-25] MEDS ORDERED: *HR* HYDROmorphone (PF) 1 MG/ML SYRINGE IVP PRN ×2 (11:28→12:41)
--- NOTE | 2016-11-25 11:39 | Orthopedic Operative Note ---
Date of procedure: 11/25/16 Pre-op diagnosis: Left shoulder cuff tear arthropathy Post-op diagnosis: same Procedure: Procedure: Left Total Shoulder Replacment Reverse, biceps tenodesis Estimated blood loss: 100 cc Hardware:Arthrex small glenoid baseplate, 2 4.5 screws. 1 6.5 screw, 39+4 glenosphere, 7 humeral stem, poly insert 3 Exam Under anesthesia: Full motion and no instability Procedural Notes: Irreparable tear supraspinatus tendon. Operative procedure: The patient was brought to the operating room and placed on the operating room table. After general anesthesia was administered the operative shoulder was examined. Findings were noted. The patient was placed in the modified beachchair position. All pressure points were padded appropriately. And the head was stabilized in the neutral position. The operative extremity was prepped and draped in the sterile surgical fashion. The patient received IV antibiotics prior to skin incision. A standard deltopectoral approach was made to the operative shoulder. Incision was made to the skin and subcutaneous tissue,hemo stasis was obtained with Bovie cautery. Using careful blunt dissection the cephalic vein was identified and mobilized medially. The deltopectoral interval was developed and the clavipectoral fascia was incised. The subscap was released off the lesser tuberosity and tagged with #2 FiberWire suture. The humerus was dislocated patient noted to have irreparable tear supraspinatus tendon, and the humeral cut was made along the anatomic neck. Anterior and posterior Bankart retractors were placed to expose the glenoid. The glenoid guide was seated and the centering hole was made. It was reamed with the appropriate reamer. The small baseplate was seated and secured with (2) 4.5 screws and one 6.5 screw. The baseplate was irrigated and dried and the 39+4 Glenosphere was seated and secured with the Dunn taper. The Dunn taper was tested and found to be secure the humerus was redislocated and prepared with the diaphyseal reamers, followed by a broaching process up to the appropriate size X in the patient's anatomic version. The metaphyseal reamer was then utilized. Trial reduction found the shoulder to be relocatable. Trial components were removed and drill holes were placed in the lesser tuberosity. They were filled with #5 FiberWire suture incorporating the biceps tendon. These sutures were used for a biceps tenodesis. The appropriate 7 stem was impacted in place in the patient's anatomic version. Trial reduction found the shoulder to be relocatable and stable with the appropriate 3. Trial component was removed and the real 3 [place] was seated and secured the shoulder was reduced. The shoulder had excellent motion and excellent stability and no evidence of dislocation. The deep tissue was irrigated with pulse irrigation. The subscap was irreparable the biceps was tenodesed. The deltopectoral interval was closed with a running #1 PDS suture, subcutaneous tissue was irrigated and closed with 0 PDS suture, the skin was closed with Dermabond. The patient was placed in a sterile dressing, abduction brace and extubated. The patient was then transferred to the recovery room in stable condition. Anesthesia: DILEEP Surgeon: Ken Mohr Promotional Model: Alyssa Mancilla Condition: stable Disposition: PACU
[2016-11-25] MEDS: Insulin LISPRO 300 UNITS/3 ML VIAL SQ SCH ×2 (12:00→16:11)
[2016-11-25] MEDS ORDERED: traZODone 50 MG TABLET PO PRN (12:41)
[2016-11-25] MEDS ORDERED: Dextrose Gel 15 GM PO PRN ×2 (12:41)
[2016-11-25] MEDS ORDERED: Sennosides 8.6 MG TABLET PO PRN (12:41)
[2016-11-25] MEDS ORDERED: D5% in Water 1,000 ML IVC PRN (12:41)
[2016-11-25] MEDS ORDERED: Acetaminophen 325 MG TABLET PO PRN (12:41)
[2016-11-25] MEDS ORDERED: *HR* OxyCODONE Immed Rel 5 MG TABLET PO PRN ×2 (12:41→13:21)
[2016-11-25] MEDS ORDERED: MOM Conc 10 ML UD.LIQ PO PRN (12:41)
[2016-11-25] MEDS ORDERED: Temazepam 15 MG CAPSULE PO PRN (12:41)
[2016-11-25] MEDS ORDERED: Naloxone 0.4 MG/ML INJ IVP PRN (12:41)
[2016-11-25] MEDS ORDERED: *HR* Dextrose 50 % in Water (Syg) 50 ML SYRINGE IVP PRN (12:41)
[2016-11-25] MEDS ORDERED: Ondansetron 4 MG/2 ML VIAL IVP PRN (12:41)
--- NOTE | 2016-11-25 12:42 | Anesthesia Evaluation Post Op ---
Date of Encounter: 11/25/16 Time of Encounter: 12:35 - Vital Signs Vital Signs: Vital Signs/O2 Sat/Glucose, Most Current Temp Pulse Resp BP Pulse Ox 11/25/16 12:38 97.8 F 62 16 122/63 99 11/25/16 12:28 97.8 F 63 16 118/64 100 11/25/16 12:18 63 16 121/71 97 11/25/16 12:08 66 16 121/75 98 11/25/16 11:58 97.3 F L 74 16 124/69 92 11/25/16 10:47 66 120/73 99 11/25/16 10:31 66 127/71 99 - Lungs Lungs: Clear Ascult./Percussion - Airway Airway: Non-obstructed - Cardiovascular Regular Rate - Mental Status Mental Status: Alert & Oriented, Answers Appropriately - Pain Pain Scale: 1 - Nausea Vomiting Nausea Vomiting: Not Present - Hydration Hydration: Ice chips - Discharge PostOp Status: Transfer Patient to floor
[2016-11-25 12:53] LABS: Hematocrit 36.4 % (35.3-44.9); Hemoglobin 11.7 g/dL (11.5-15.4)
[2016-11-25] MEDS: Ringers Solution, Lactated 1,000 ML IVC SCH (16:05)
[2016-11-25] MEDS: *HR* Enoxaparin 30 MG/0.3 ML SYRINGE SQ SCH (16:12)
[2016-11-25] MEDS ORDERED: *HR* Enoxaparin 30 MG/0.3 ML SYRINGE SQ SCH (18:00)
[2016-11-25] MEDS: ceFAZolin 2,000 MG in D5% in Water 100 ML IVPB SCH (18:05)
[2016-11-25] MEDS: Topiramate 100 MG TABLET PO SCH (20:50)
[2016-11-25] MEDS ORDERED: Insulin LISPRO 300 UNITS/3 ML VIAL SQ SCH (21:00)
[2016-11-25] MEDS ORDERED: Latanoprost 2.5 ML BOTTLE BOTH EYES SCH (21:00)
[2016-11-26] MEDS: ceFAZolin 2,000 MG in D5% in Water 100 ML IVPB SCH (00:03)
[2016-11-26] MEDS: *HR* OxyCODONE Immed Rel 5 MG TABLET PO PRN ×2 (00:26→07:26)
[2016-11-26] MEDS: Ringers Solution, Lactated 1,000 ML IVC SCH (02:56)
[2016-11-26] MEDS: *HR* Enoxaparin 30 MG/0.3 ML SYRINGE SQ SCH (05:09)
[2016-11-26 05:20] LABS: Hematocrit 36.1 % (35.3-44.9); Hemoglobin 11.8 g/dL (11.5-15.4)
--- NOTE | 2016-11-26 06:23 | Orthopedics Progress Note ---
Date of Encounter: 11/26/16 Time of Encounter: 06:23 - Assessment and Plan (1) Diabetes mellitus Current Visit: No Status: Chronic Qualifiers: Diabetes mellitus type: type 2 Diabetes mellitus complication status: with unspecified complications Diabetes mellitus senior living insulin use: unspecified terminal superintendent insulin use status Qualified Code(s): E11.8 - Type 2 diabetes mellitus with unspecified complications (2) Left rotator cuff tear arthropathy Current Visit: Yes Status: Acute (3) HTN (hypertension) Current Visit: Yes Status: Chronic Qualifiers: Hypertension type: essential hypertension Qualified Code(s): I10 - Essential (primary) hypertension (4) Seizure disorder Current Visit: Yes Status: Chronic (5) DMII (diabetes mellitus, type 2) Current Visit: Yes Status: Chronic Qualifiers: Diabetes mellitus complication status: with unspecified complications Diabetes mellitus senior living insulin use: unspecified terminal superintendent insulin use status Qualified Code(s): E11.8 - Type 2 diabetes mellitus with unspecified complications Subjective Interval history: Patient was seen this morning doing well without complaints. Afebrile vital signs stable. Operative extremity: Neurovascularly intact Dressing clean dry and intact Calves nontender Assessment and plan: Continue with postoperative care Hematocrit 36 Objective Vital signs: Vital Signs Temp Pulse Resp BP Pulse Ox 11/26/16 03:12 98.2 F 74 17 155/76 98 11/26/16 00:05 98 F 69 15 134/75 96 11/25/16 20:11 98.4 F 77 15 123/73 97 11/25/16 16:07 97.8 F 71 18 119/70 98 11/25/16 14:30 75 18 96 11/25/16 13:30 70 18 117/63 98 11/25/16 13:01 97.7 F 63 16 110/59 99 11/25/16 12:38 97.8 F 62 16 122/63 99 11/25/16 12:28 97.8 F 63 16 118/64 100 11/25/16 12:18 63 16 121/71 97 11/25/16 12:08 66 16 121/75 98 11/25/16 11:58 97.3 F L 74 16 124/69 92 11/25/16 10:47 66 120/73 99 11/25/16 10:31 66 127/71 99 11/25/16 08:37 98.8 F 74 18 113/66 94 Intake and Output 11/25/16 11/25/16 11/26/16 15:59 23:59 07:59 Intake Total 560 / 560 250 / 250 Output Total 100 / 100 850 / 850 500 / 500 Balance -100 / -100 -290 / -290 -250 / -250 Intake: IV Fluids 100 / 100 100 / 100 Ancef 2,000 MG In 100 / 100 100 / 100 Dextrose 5% 100 ML @ 200 mls/hr IVPB Q8H [facility] Rx#: [id number] Oral 460 / 460 150 / 150 Output: Urine 850 / 850 500 / 500 Estimated Blood Loss 100 / 100 Other: Meal Dinner Percent of Meal Consumed 100% Stool Size Small Stool Characteristics Normal for Patient Stool Color Brown # Voids 1 1 1 Weight 81.647 kg Blood Glucose* 137 360 - Labs CBC & BMP: 11/26/16 04:32 Labs: Abnormal lab results POC Glucose 360 (58-89) H 11/25/16 20:21 - VTE Documentation of Mechanical Device: Venous foot pump, device Consult Discharge Plan - Plan Referrals: Alfredo Brooke, HOUSE PIPING INSPECTOR [Primary Care Provider] -
[2016-11-26] MEDS: Topiramate 100 MG TABLET PO SCH (07:13)
[2016-11-26] MEDS: Insulin LISPRO 300 UNITS/3 ML VIAL SQ SCH (07:14)
[2016-11-26] MEDS ORDERED: amLODIPine 5 MG TABLET PO SCH (09:00)
[2016-11-26] MEDS ORDERED: *HR* Metformin 500 MG TABLET PO SCH (09:00)
[2016-11-26] MEDS ORDERED: Loratadine 10 MG TABLET PO SCH (09:00)
[2016-11-26 10:33] VITALS: BP 135/72
== END 2016-11-26 14:39 | disposition home or self-care (01) | DRG 483 ==
LOC: SAMDAY 07:48 → 3NENU 12:40
PROVIDERS: ADMIT Orthopaedic Surgery; ATTEND Orthopaedic Surgery

== ENCOUNTER 2021-05-14 09:18 | Inpatient (IN) ==
[2021-05-14] MEDS ORDERED: cefOXitin 2,000 MG in Water for inj. (sterile) 10 ML IVP ONE (09:53)
[2021-05-14] MEDS ORDERED: Ringers Solution, Lactated 1,000 ML IVC SCH (10:00)
[2021-05-14] MEDS ORDERED: Lidocaine -MPF 2% 5 ML VIAL ONE (14:43)
[2021-05-14] MEDS ORDERED: *HR* Propofol 200 MG/20 ML VIAL IVP ONE (14:44)
[2021-05-14] MEDS ORDERED: *HR* FentaNYL (PF) 100 MCG/2 ML VIAL ONE ×2 (14:44→17:50)
[2021-05-14] MEDS ORDERED: *HR* Magnesium Sulfate 1 GM/2 ML VIAL ONE (14:44)
[2021-05-14] MEDS ORDERED: *HR* Phenylephrine 10 MG/ML VIAL ONE (15:27)
[2021-05-14] MEDS ORDERED: Albumin Human 5% 25.0 GM/500 ML IV.SOLN ONE (16:11)
[2021-05-14] MEDS ORDERED: EPHEDrine 50 MG/ML VIAL ONE (16:19)
[2021-05-14] MEDS ORDERED: Ondansetron 4 MG/2 ML VIAL ONE (16:52)
[2021-05-14] MEDS ORDERED: *HR* HYDROcodone/Acet 5/325 mg TABLET PO PRN (19:48)
[2021-05-14] MEDS ORDERED: Acetaminophen 325 MG TABLET PO PRN (19:48)
[2021-05-14] MEDS ORDERED: Ondansetron 4 MG/2 ML VIAL IVP PRN (19:48)
[2021-05-14] MEDS ORDERED: Dextrose Gel 15 GM/37.5 ML TUBE PO PRN ×2 (19:48)
[2021-05-14] MEDS ORDERED: D5% in Water 1,000 ML IVC PRN (19:48)
[2021-05-14] MEDS ORDERED: Naloxone 0.4 MG/ML INJ IVP PRN (19:48)
[2021-05-14] MEDS ORDERED: *HR* Metoprolol 5 MG/5 ML VIAL IVP PRN (19:48)
[2021-05-14] MEDS ORDERED: *HR* Dextrose 50 % in Water (Syg) 50 ML SYRINGE IVP PRN (19:48)
[2021-05-14] MEDS: 0.9 % Sodium Chloride 1,000 ML IVC SCH (20:32)
[2021-05-14] MEDS: Morphine Sulfate 2 MG/ML SYRINGE IVP PRN (22:02)
[2021-05-15] MEDS: Piperacillin/Tazobactam 3.375 GM in 0.9 % Sodium Chloride Mini Bag 100 ML IVPB SCH ×3 (00:45→16:26)
[2021-05-15] MEDS: Ketorolac 15 MG/ML VIAL IVP SCH ×2 (00:45→05:55)
[2021-05-15] MEDS: Insulin LISPRO 300 UNITS/3 ML VIAL SUBQ SCH ×5 (00:46→23:51)
[2021-05-15] MEDS: Morphine Sulfate 2 MG/ML SYRINGE IVP PRN ×3 (02:22→20:15)
[2021-05-15] MEDS: 0.9 % Sodium Chloride 1,000 ML IVC SCH ×3 (05:56→23:39)
[2021-05-15 07:50] LABS: Basophils % 0.1 %; Hematocrit 32.6 % (35.3-44.9); Hemoglobin 10.5 g/dL (11.5-15.4); Immature Granulocytes % 0.9 % (0-4); Lymphocytes # 0.8 K/mcL (0.6-4.6); Lymphocytes % 10.1 %; Mean Corpuscular HGB Conc 32.2 g/dL (31.6-35.5); Mean Corpuscular Hemoglobin 26.7 pg (28.0-33.3); Mean Platelet Volume 10.5 fL (9.4-12.4); Monocytes # 0.4 K/mcL (0.0-1.3); Monocytes % 4.9 %; Neutrophils # 6.3 K/mcL (1.6-8.9); Platelet Count 210 K/mcL (140-400); Red Blood Count 3.93 M/mcL (3.82-4.97); Red Cell Distribution Width 14.3 % (11.5-14.5); White Blood Count 7.5 K/mcL (4.3-11.1)
[2021-05-15 08:23] LABS: BUN/Creatinine Ratio 9 (6-26); Blood Urea Nitrogen 8 mg/dL (8-23); Calcium 8.3 mg/dL (8.6-10.3); Carbon Dioxide 20 mEq/L (23-29); Chloride 109 mEq/L (98-107); Glucose 150 mg/dL (70-105); Osmolality,Calculated 291 (280-300); Phosphorous 3.4 mg/dL (2.7-4.5); Sodium 140 mEq/L (136-145); eGFR For African Americans > 60 (> 60); eGFR For Non-African Americans 60 (> 60)
[2021-05-15] MEDS: methocarbamoL 750 MG TABLET PO SCH ×3 (09:00→23:38)
[2021-05-15] MEDS: amLODIPine 5 MG TABLET PO SCH (09:02)
[2021-05-15] MEDS: OXcarbazepine 150 MG TABLET PO SCH ×2 (09:59→21:01)
[2021-05-15 12:59] LABS: Hematocrit 28.7 % (35.3-44.9); Hemoglobin 9.7 g/dL (11.5-15.4)
[2021-05-15] MEDS: BEPOTASTINE BESILATE OP SCH ×2 (14:16→22:36)
[2021-05-15] MEDS ORDERED: *HR* Heparin 5,000 UNIT/ML VIAL SQ SCH (18:00)
[2021-05-15] MEDS: Latanoprost 2.5 ML BOTTLE BOTH EYES SCH (21:01)
[2021-05-16] MEDS: Morphine Sulfate 2 MG/ML SYRINGE IVP PRN ×2 (01:57→06:05)
[2021-05-16] MEDS: Insulin LISPRO 300 UNITS/3 ML VIAL SUBQ SCH ×3 (06:04→17:42)
[2021-05-16] MEDS: OXcarbazepine 150 MG TABLET PO SCH ×2 (08:15→20:47)
[2021-05-16] MEDS: amLODIPine 5 MG TABLET PO SCH (08:15)
[2021-05-16] MEDS: methocarbamoL 750 MG TABLET PO SCH ×2 (08:15→15:11)
[2021-05-16] MEDS: BEPOTASTINE BESILATE OP SCH ×2 (08:58→20:48)
[2021-05-16 09:20] LABS: Immature Granulocytes % 1.6 % (0-4); Mean Corpuscular HGB Conc 32.7 g/dL (31.6-35.5); Mean Corpuscular Hemoglobin 27.5 pg (28.0-33.3)
[2021-05-16 09:22] LABS: Basophils % 0.3 %; Eosinophils % 0.3 %; Hematocrit 29.7 % (35.3-44.9); Hemoglobin 9.7 g/dL (11.5-15.4); Lymphocytes % 25.3 %; Mean Corpuscular Volume 84.1 fL (83.0-100.0); Mean Platelet Volume 12.2 fL (9.4-12.4); Monocytes # 0.4 K/mcL (0.0-1.3); Neutrophils # 5.4 K/mcL (1.6-8.9); Platelet Count 145 K/mcL (140-400); Red Blood Count 3.53 M/mcL (3.82-4.97); Red Cell Distribution Width 14.5 % (11.5-14.5); Segmented Neutrophils % 67.5 %
[2021-05-16 09:25] LABS: BUN/Creatinine Ratio 9 (6-26); Blood Urea Nitrogen 7 mg/dL (8-23); Calcium 8.1 mg/dL (8.6-10.3); Carbon Dioxide 20 mEq/L (23-29); Chloride 110 mEq/L (98-107); Glucose 126 mg/dL (70-105); Magnesium 1.9 mg/dL (1.6-2.6); Osmolality,Calculated 288 (280-300); Phosphorous 2.5 mg/dL (2.7-4.5); Potassium 4.1 mEq/L (3.5-5.1); Sodium 139 mEq/L (136-145); eGFR For African Americans > 60 (> 60); eGFR For Non-African Americans > 60 (> 60)
[2021-05-16 09:42] LABS: Platelet Estimate Normal (Normal)
[2021-05-16] MEDS: Acetaminophen 325 MG TABLET PO SCH ×2 (10:00→17:46)
[2021-05-16] MEDS: Fluticasone Propionate Nasal 50 MCG/SPRAY BOTTLE NS SCH (10:00)
[2021-05-16] MEDS: GuaiFENesin/Dextromethorphan TABLET PO SCH ×2 (10:00→20:47)
[2021-05-16] MEDS: *HR* Heparin 5,000 UNIT/ML VIAL SQ SCH (17:47)
[2021-05-16] MEDS: Latanoprost 2.5 ML BOTTLE BOTH EYES SCH (20:48)
[2021-05-16] MEDS ORDERED: traZODone 50 MG TABLET PO SCH (21:00)
[2021-05-17] MEDS: Acetaminophen 325 MG TABLET PO SCH ×2 (00:25→05:54)
[2021-05-17] MEDS: methocarbamoL 750 MG TABLET PO SCH ×2 (00:25→09:11)
[2021-05-17] MEDS: Insulin LISPRO 300 UNITS/3 ML VIAL SUBQ SCH ×2 (00:25→05:55)
[2021-05-17 05:38] LABS: Basophils % 0.6 %; Eosinophils # 0.1 K/mcL (0.0-0.6); Eosinophils % 1.2 %; Hematocrit 30.7 % (35.3-44.9); Hemoglobin 9.9 g/dL (11.5-15.4); Immature Granulocytes % 0.4 % (0-4); Lymphocytes # 1.9 K/mcL (0.6-4.6); Lymphocytes % 37.7 %; Mean Corpuscular HGB Conc 32.2 g/dL (31.6-35.5); Mean Corpuscular Hemoglobin 27.7 pg (28.0-33.3); Mean Corpuscular Volume 85.8 fL (83.0-100.0); Mean Platelet Volume 10.6 fL (9.4-12.4); Monocytes # 0.3 K/mcL (0.0-1.3); Monocytes % 5.6 %; Neutrophils # 2.7 K/mcL (1.6-8.9); Platelet Count 210 K/mcL (140-400); Red Blood Count 3.58 M/mcL (3.82-4.97); Red Cell Distribution Width 14.2 % (11.5-14.5); Segmented Neutrophils % 54.5 %
[2021-05-17] MEDS: *HR* Heparin 5,000 UNIT/ML VIAL SQ SCH (05:55)
[2021-05-17 06:02] LABS: BUN/Creatinine Ratio 7 (6-26); Blood Urea Nitrogen 6 mg/dL (8-23); Calcium 8.7 mg/dL (8.6-10.3); Carbon Dioxide 26 mEq/L (23-29); Chloride 103 mEq/L (98-107); Glucose 145 mg/dL (70-105); Magnesium 1.8 mg/dL (1.6-2.6); Osmolality,Calculated 284 (280-300); Phosphorous 2.9 mg/dL (2.7-4.5); Potassium 3.5 mEq/L (3.5-5.1); Sodium 137 mEq/L (136-145); eGFR For African Americans > 60 (> 60); eGFR For Non-African Americans > 60 (> 60)
[2021-05-17] MEDS: OXcarbazepine 150 MG TABLET PO SCH (09:09)
[2021-05-17] MEDS: amLODIPine 5 MG TABLET PO SCH (09:09)
[2021-05-17] MEDS: GuaiFENesin/Dextromethorphan TABLET PO SCH (09:09)
[2021-05-17] MEDS: BEPOTASTINE BESILATE OP SCH (09:14)
[2021-05-17] MEDS: Fluticasone Propionate Nasal 50 MCG/SPRAY BOTTLE NS SCH (09:16)
[2021-05-17 10:41] VITALS: BP 138/77; PULSE 76; TEMP 97.8; O2SAT 95
== END 2021-05-17 14:03 | disposition home or self-care (01) | DRG 331 ==
LOC: SAMDAY 09:18 → SUATTDRO 19:42 → 3ANU 19:42
PROVIDERS: ADMIT Surgery; ATTEND Student in an Organized Health Care Education/Training Program